=== PATIENT | female | born 1970 | race Caucasian/White ===

== ENCOUNTER 2023-03-08 06:14 | Outpatient (CLI) | payer OTHER ==
[2023-03-08 08:07] LABS: URINE APPEARANCE Clear; URINE BILIRRUBIN Negative (NEGATIVE); URINE COLOR Yellow; URINE GLUCOSE Negative (NEGATIVE); URINE LEUKOCYTE Negative; URINE NITRATE Negative; URINE PROTEIN Negative (NEGATIVE)
[2023-03-08 08:13] LABS: URINE BACTERIA 85.6 uL (0.0-1933); URINE WBC 6.9 uL (0.0-23.2)
[2023-03-08 08:17] LABS: URINE BLOOD TRACES
[2023-03-08 08:37] LABS: HEMATOCRIT 40.2 % (36.0-45.00); HEMOGLOBIN 13.3 g/dL (12.0-15.00); MEAN CELL VOLUME 90.4 fL (80.00-100.00); MEAN CORPUSCULAR HEMOGLOBIN 29.8 pg (27.00-32.0); PLATELET COUNT 316 K/uL (150-450); RED BLOOD COUNT 4.45 M/uL (4.00-6.00); RED CELL DISTRIBUTION WIDTH 14.1 % (11.5-14.5)
[2023-03-08 09:00] LABS: INR 0.94; PARTIAL THROMBOPLASTIN TIME 27.6 SECONDS (22.0-34.0); PROTHROMBIN TIME 9.9 SECONDS (9.0-11.5)
[2023-03-08 09:17] LABS: ALBUMIN 4.3 gm/dL (3.4-5.0); BILIRUBIN TOTAL 0.33 mg/dL (0.3-1.2); CALCIUM 9.5 mg/dL (8.5-10.1); CREATININE SERUM 0.84 mg/dL (0.55-1.02); GFR 70.92; GLOBULINA 3.2 G/DL (2.4-3.5); MAGNESIUM 2.2 mg/dL (1.8-2.4); PHOSPHOROUS 2.8 mg/dL (2.5-4.9); POTASSIUM 3.82 mEq/L (3.5-5.1); TOTAL PROTEIN 7.5 gm/dL (6.4-8.2)
[2023-03-08 09:29] LABS: COL EPI 143 SECONDS (82-175)
[2023-03-09 14:06] LABS: CALCIUM IONIZED 5.1 mg/dL (4.5-5.6)
[2023-03-11 18:06] LABS: VITAMIN K 0.32 ng/mL (0.10-2.20)
== END 2023-03-08 06:17 | disposition home or self-care (01) ==
LOC: LAB 06:14
PROVIDERS: ATTEND Orthopaedic Surgery
DX: D64.9 Anemia, unspecified (principal); N39.0 Urinary tract infection, site not specified; Z22.322 Carrier or suspected carrier of Methicillin resistant Staphylococcus aureus; D68.8 Other specified coagulation defects; E55.9 Vitamin D deficiency, unspecified; M85.9 Disorder of bone density and structure, unspecified; E56.1 Deficiency of vitamin K; E21.3 Hyperparathyroidism, unspecified; M81.8 Other osteoporosis without current pathological fracture; E88.89 Other specified metabolic disorders

== ENCOUNTER 2023-03-08 07:39 | Outpatient (CLI) | payer OTHER | END 2023-03-08 07:47 | disposition home or self-care (01) | LOC: RAD 07:39 | PROVIDERS: ATTEND Orthopaedic Surgery | DX: Z76.89 Persons encountering health services in other specified circumstances (principal); M79.672 Pain in left foot; M25.572 Pain in left ankle and joints of left foot ==

== ENCOUNTER 2023-03-08 08:30 | Outpatient (CLI) | payer OTHER | END 2023-03-08 08:38 | disposition home or self-care (01) | LOC: EKG 08:30 | PROVIDERS: ATTEND Orthopaedic Surgery | DX: I20.89 Other forms of angina pectoris (principal) ==

== ENCOUNTER 2023-03-17 12:11 | Outpatient (CLI) | payer OTHER | END 2023-03-17 12:12 | disposition home or self-care (01) | LOC: NUCLEAR 12:11 | PROVIDERS: ATTEND Orthopaedic Surgery | DX: M81.0 Age-related osteoporosis without current pathological fracture (principal) ==

== ENCOUNTER 2023-04-05 05:00 | Day surgery (SDC) | payer OTHER ==
[~2023-04-05] VITALS: Ht 157.5 cm; Wt 72.6 kg
[~2023-04-05 05:00] MED LIST: ATORVASTATIN CA10 MG PO; COZAAR100 MG PO; EFFEXOR XR150 MG PO; PRILOSEC10 MG PO
== END 2023-04-05 16:25 | disposition home or self-care (01) ==
LOC: CIR.AMB 05:00
PROVIDERS: ATTEND Orthopaedic Surgery
DX: M65.872 Other synovitis and tenosynovitis, left ankle and foot (principal); S82.62XA Displaced fracture of lateral malleolus of left fibula, initial encounter for closed fracture; Z20.822 Contact with and (suspected) exposure to COVID-19; Z88.0 Allergy status to penicillin

== ENCOUNTER 2023-06-03 07:20 | Outpatient (CLI) | payer OTHER | END 2023-06-03 07:24 | disposition home or self-care (01) | LOC: RAD 07:20 | PROVIDERS: ATTEND Orthopaedic Surgery | DX: M76.72 Peroneal tendinitis, left leg (principal); M25.572 Pain in left ankle and joints of left foot; Z88.0 Allergy status to penicillin ==